=== PATIENT | male | born 1935 | race Caucasian/White ===

== ENCOUNTER → 2017-06-27 | Outpatient (CLI) | payer MEDICARE ==
[~2017-06-27] MED LIST: ATOR10 PO; Aspirin EC81 MG; Calcium 600 MG1 EACH PO; Hair, Skin & N1 EACH PO; TAMS.4ER PO; VITAMIN D-32000 UNI1 PO
== END | disposition home or self-care (01) ==
LOC: PLD 07:54 → LAB SHORT 07:54
DX: D48.5 Neoplasm of uncertain behavior of skin (principal)
CPT/HCPCS: 88305

== ENCOUNTER 2017-08-22 12:21 | Day surgery (SDC) | payer MEDICARE ==
[~2017-08-22] VITALS: Ht 170.2 cm; Wt 76.3 kg
== END 2017-08-22 15:05 | disposition home or self-care (01) ==
LOC: ORSCSDS 12:21
PROVIDERS: Internal Medicine Gastroenterology
PROC: 0D5P8ZZ Destruction of Rectum, Via Natural or Artificial Opening Endoscopic (ICD-10-PCS; principal; 2017-08-22 13:45)
PROC: 0DBM8ZX Excision of Descending Colon, Via Natural or Artificial Opening Endoscopic, Diagnostic (ICD-10-PCS; principal; 2017-08-22 13:45)
PROC: 0DB58ZX Excision of Esophagus, Via Natural or Artificial Opening Endoscopic, Diagnostic (ICD-10-PCS; principal; 2017-08-22 13:45)
DX: K22.70 Barrett's esophagus without dysplasia (principal); K44.9 Diaphragmatic hernia without obstruction or gangrene; K92.1 Melena; D12.4 Benign neoplasm of descending colon; Q27.33 Arteriovenous malformation of digestive system vessel; K57.30 Diverticulosis of large intestine without perforation or abscess without bleeding; K64.8 Other hemorrhoids; Z79.899 Other long term (current) drug therapy; Z79.82 Long term (current) use of aspirin
CPT/HCPCS: 88305; J7120

== ENCOUNTER 2018-11-03 08:55 | Emergency (ER) | payer MEDICARE ==
[~2018-11-03] VITALS: Ht 170.2 cm; Wt 77.1 kg
[2018-11-03 10:16] LABS: Source, Urine Clean Catch
[2018-11-03 10:19] LABS: Bilirubin, Urine Neg (Neg); Blood, Urine Neg (Neg); Glucose Qualitative, Urine Neg (Neg); Ketones, Urine Neg (Neg); Leukocyte Esterase, Urine Neg (Neg); Nitrite, Urine Neg (Neg); Protein, Urine Neg (Neg); Urobilinogen, Urine NORM (Normal)
[2018-11-03 10:31] LABS: Appearance, Urine Clear (Clear); Color, Urine Yellow (P-Yellow)
[2018-11-03 10:31] LABS: BASOPHILS ABSOLUTE AUTO 0.01 K/mm3 (0.00-0.23); BASOPHILS PERCENT AUTO 0 % (0-2); EOSINOPHILS ABSOLUTE AUTO 0.37 K/mm3 (0.00-0.68); EOSINOPHILS PERCENT AUTO 6 % (0-6); Hematocrit 42.2 % (37.0-53.0); Hemoglobin 13.8 g/dL (13.5-17.5); IMMATURE GRAN ABSOLUTE AUTO 0.02 K/mm3 (0.00-0.10); IMMATURE GRAN PERCENT AUTO 0 % (0-1); LYMPHOCYTES ABSOLUTE AUTO 1.12 K/mm3 (0.84-5.20); LYMPHOCYTES PERCENT AUTO 17 % (21-46); MONOCYTES ABSOLUTE AUTO 0.56 K/mm3 (0.16-1.47); MONOCYTES PERCENT AUTO 8 % (4-13); Mean Corpuscular HGB 30.7 pg (26.0-34.0); Mean Corpuscular HGB Conc 32.7 g/dL (31.5-36.5); Mean Corpuscular Volume 94 fL (80-100); Mean Platelet Volume 11.3 fL (9.1-12.4); NEUTROPHILS ABSOLUTE AUTO 4.63 K/mm3 (1.96-9.15); NEUTROPHILS PERCENT AUTO 69 % (41-73); Platelet Count 160 K/mm3 (150-400); RDW Coefficient Variation 13.2 % (11.7-14.2); RDW Standard Deviation 45.6 fL (35.1-46.3); White Blood Cell Count 6.71 K/mm3 (4.00-11.30)
[2018-11-03 10:46] LABS: Alanine Aminotransfer (ALT/SGP 17 U/L (12-78); Albumin, Blood 3.2 g/dL (3.4-5.0); Alk Phos 85 U/L (50-136); Anion Gap 7 mmol/L (6-16); Aspartate Aminotrans (AST/SGOT 15 U/L (12-37); Bilirubin, Total 0.5 mg/dL (0.1-1.0); Blood Urea Nitrogen 22 mg/dL (8-24); Bun/Creatinine Ratio 26.1 (12.0-20.0); CO2, Blood 25 mmol/L (21-32); Chloride, Blood 110 mmol/L (98-108); Creatinine, Blood 0.84 mg/dL (0.60-1.20); Globulin, Blood 3.3 g/dL (2.2-4.0); Glomerular Filtration Rate >60 (60-); Glucose, Blood 124 mg/dL (70-99); Magnesium, Blood 1.9 mg/dL (1.6-2.4); Potassium, Blood 3.6 mmol/L (3.5-5.5); Sodium, Blood 142 mmol/L (136-145); Total Protein, Blood 6.5 g/dL (6.4-8.2); Troponin I <0.015 ng/mL (0.000-0.040)
== END 2018-11-03 12:15 | disposition home or self-care (01) ==
LOC: ER 08:55
PROVIDERS: Emergency Medicine
DX: R41.0 Disorientation, unspecified (principal); Z88.0 Allergy status to penicillin; Z79.899 Other long term (current) drug therapy; Z79.82 Long term (current) use of aspirin
CPT/HCPCS: 36415; 70450; 71046; 80053; 81003; 83735; 84484; 85025; 93005; 93010; 99285-25

== ENCOUNTER 2020-06-02 10:44 | Day surgery (SDC) | payer MEDICARE ==
[~2020-06-02] VITALS: Ht 175.3 cm; Wt 81.5 kg
[~2020-06-02 10:44] MED LIST changes: +ATOR20 PO; +OMEP20ER PO
[2020-06-02] MEDS ORDERED: CLOP75 PO (11:48)
== END 2020-06-02 14:04 | disposition home or self-care (01) ==
LOC: ORSCSDS 10:44
PROVIDERS: Internal Medicine Gastroenterology
PROC: 0DB58ZX Excision of Esophagus, Via Natural or Artificial Opening Endoscopic, Diagnostic (ICD-10-PCS; principal; 2020-06-02 12:30)
PROC: 0DB98ZX Excision of Duodenum, Via Natural or Artificial Opening Endoscopic, Diagnostic (ICD-10-PCS; principal; 2020-06-02 12:30)
PROC: 0DBN8ZX Excision of Sigmoid Colon, Via Natural or Artificial Opening Endoscopic, Diagnostic (ICD-10-PCS; principal; 2020-06-02 12:30)
DX: D50.9 Iron deficiency anemia, unspecified (principal); D18.1 Lymphangioma, any site; K22.70 Barrett's esophagus without dysplasia; D12.5 Benign neoplasm of sigmoid colon; K21.9 Gastro-esophageal reflux disease without esophagitis; K44.9 Diaphragmatic hernia without obstruction or gangrene; K57.30 Diverticulosis of large intestine without perforation or abscess without bleeding; K64.8 Other hemorrhoids; Z79.899 Other long term (current) drug therapy
CPT/HCPCS: 88305; J2704; J7120

== ENCOUNTER 2022-07-27 11:35 | Day surgery (SDC) | payer MEDICARE ==
[~2022-07-27] VITALS: Ht 170.2 cm; Wt 80.6 kg
[~2022-07-27 11:35] MED LIST changes: +CLOP75 PO
--- NOTE | 2022-07-27 14:34 | NUR ---
07/27/22 1434 Rosa Blue AT 1420 PLEDGET AT 1430
[2022-07-27 15:46] VITALS: BP 143/86
--- NOTE | 2022-07-27 16:35 | NUR ---
07/27/22 1635 Kody Borrero PT SUSTAINED O2 BETWEEN 93% AND 98% IN SDU. HE WAS TALKATIVE AND ALERT. HE DENIED SYMPTOMS OF HYPOXIA AND NONE WERE OBSERVED. PT FAMILY SAID HE SUSTAINS O2 IN LOW 90'S AT BASELINE.
== END 2022-07-27 16:20 | disposition home or self-care (01) ==
LOC: ORSCSDS 11:35
PROVIDERS: Ophthalmology
PROC: 08DK3ZZ Extraction of Left Lens, Percutaneous Approach (ICD-10-PCS; principal; 2022-07-27 12:00)
DX: H25.12 Age-related nuclear cataract, left eye (principal); J45.909 Unspecified asthma, uncomplicated; I10 Essential (primary) hypertension; K21.9 Gastro-esophageal reflux disease without esophagitis; E78.5 Hyperlipidemia, unspecified; Z86.73 Personal history of transient ischemic attack (TIA), and cerebral infarction without residual deficits; R06.02 Shortness of breath; Z79.899 Other long term (current) drug therapy
CPT/HCPCS: J2250; J3010; J3301; J7040; V2632

== ENCOUNTER 2022-08-31 10:09 | Day surgery (SDC) | payer MEDICARE ==
[~2022-08-31] VITALS: Ht 170.2 cm; Wt 81.2 kg
--- NOTE | 2022-08-31 11:00 | NUR ---
08/31/22 1100 Destiny Valles TETRACAINE PLACED IN RIGHT AT 1046. PLEDGET FOAM PLACED IN RIGHT EYE AT 1048. PT TOLERATED WELL. CALL LIGHT IN REACH.
[2022-08-31 11:54] VITALS: BP 155/84
--- NOTE | 2022-08-31 12:08 | NUR ---
08/31/22 1208 [place] IV REMOVED, SITE WNL
== END 2022-08-31 12:08 | disposition home or self-care (01) ==
LOC: ORSCSDS 10:09
PROVIDERS: Ophthalmology
PROC: 08DJ3ZZ Extraction of Right Lens, Percutaneous Approach (ICD-10-PCS; principal; 2022-08-31 11:30)
DX: H25.11 Age-related nuclear cataract, right eye (principal); Z96.1 Presence of intraocular lens; H21.81 Floppy iris syndrome; R06.02 Shortness of breath; J45.909 Unspecified asthma, uncomplicated; K21.9 Gastro-esophageal reflux disease without esophagitis; Z86.73 Personal history of transient ischemic attack (TIA), and cerebral infarction without residual deficits; Z79.899 Other long term (current) drug therapy
CPT/HCPCS: 82947; J1100; J2250; J2405; J3010; J3301; J7040; V2632